=== PATIENT | male | born 1985 | race Caucasian/White ===

== ENCOUNTER 2021-10-07 08:51 | Emergency (ER) | payer SELFPAY ==
[~2021-10-07] VITALS: Ht 182.9 cm; Wt 86.2 kg
[~2021-10-07 08:51] MED LIST: PENVK500 PO; Percocet 5-3251 EACH PO
== END 2021-10-07 11:50 | disposition home or self-care (01) ==
LOC: ER 08:51
DX: R20.0 Anesthesia of skin (principal); M79.642 Pain in left hand; M79.641 Pain in right hand
CPT/HCPCS: 99283